=== PATIENT | male | born 1940 | race Caucasian/White ===

== ENCOUNTER 2025-01-18 22:10 | Inpatient (IN) | payer MEDICARE ==
[~2025-01-18] VITALS: Ht 170.2 cm; Wt 59.4 kg
[2025-01-18] MEDS ORDERED: ondansetron HCL 4 MG/2 ML VIAL IV ONE (23:00)
[2025-01-18] MEDS ORDERED: HYDROmorphone HCL 1 MG/ML SYR IV PRN (23:00)
[2025-01-18] MEDS ORDERED: LACTATED RINGER'S 1,000 ML IV ONE (23:00)
[2025-01-18] MEDS ORDERED: FAMOTIDINE 20 MG/ 2 ML VIAL IV ONE (23:00)
[2025-01-18 23:10] LABS: BASOPHILS 0.2 % (0.2-1.2); EOSINOPHILS 0.4 % (0.8-7.0); HEMATOCRIT 42.5 % (40.1-51.0); HEMOGLOBIN 14.1 g/dL (13.7-17.5); LYMPHOCYTES 3.3 % (21.8-53.1); MCH 32.3 PG (25.7-32.2); MCHC 33.2 g/dL (32.3-36.5); MCV 97.3 fL (79.0-92.2); MONOCYTES 4.8 % (5.3-12.2); NEUTROPHILS 89.9 % (34.0-67.9); PLATELET COUNT 238 K/uL (163-337); RBC 4.37 M/uL (4.63-6.08)
[2025-01-18 23:23] LABS: BILIRUBIN, URINE NEGATIVE (negative); BLOOD/HGB, URINE MODERATE (Negative); KETONE, URINE TRACE (Negative); LEUK ESTERASE, URINE MODERATE (negative); NITRITE, URINE POSITIVE (negative); PH, URINE 6.5 (5-7)
[2025-01-18 23:28] LABS: CRYSTALS, URINE NONE SEEN (0-1+); EPITHELIAL CELLS, URINE SQUAMOUS 1+ /lpf (0-1+); WHITE BLOOD CELLS, URINE >50 /HPF (0-5)
[2025-01-18 23:29] LABS: BACTERIA, URINE 2+ /hpf (negative); CASTS, URINE NONE SEEN \\lpf; COLLECTION TYPE, URINE CLEAN CATCH; REFLEX CULTURE, URINE Yes (No)
[2025-01-18 23:34] LABS: ALBUMIN 2.5 g/dL (3.4-5.0); ALBUMIN/GLOBULIN RATIO 0.5 (1.1-2.4); ANION GAP 16.9 (7-21); BILIRUBIN, TOTAL 1.4 mg/dL (0.2-1.0); CREATININE, SERUM 3.82 mg/dL (0.70-1.30); POTASSIUM 3.9 mmol/L (3.5-5.1); PROTEIN, TOTAL 7.5 g/dL (6.4-8.2)
[2025-01-18 23:39] LABS: CALCIUM 9.1 mg/dL (8.5-10.1)
[2025-01-18 23:40] LABS: BUN/CREATININE RATIO 41.09 (6.0-28.6)
[2025-01-19] MEDS ORDERED: LIDOCAINE 2% VISCOUS 6 ML SYR TOP ONE (00:15)
[2025-01-19] MEDS ORDERED: CEFTRIAXONE SODIUM 2 GM in SODIUM CHLORIDE 0.9% 100 ML IV ONE (00:15)
[2025-01-19 00:50] LABS: LACTIC ACID, BLOOD 1.7 mmol/L (0.4-2.0)
[2025-01-19] MEDS ORDERED: LACTATED RINGER'S 1,000 ML IV SCH (01:15)
[2025-01-19] MEDS ORDERED: LACTATED RINGER'S 1,000 ML IV ONE (01:15)
[2025-01-19] MEDS ORDERED: ondansetron HCL 4 MG/2 ML VIAL IV PRN ×2 (01:15→10:30)
[2025-01-19] MEDS ORDERED: HYDROmorphone HCL 1 MG/ML SYR IV PRN ×2 (01:15→10:30)
[2025-01-19 01:30] LABS: AMPHETAMINES, URINE NEGATIVE (NEGATIVE); BARBITURATES, URINE NEGATIVE (NEGATIVE); BENZODIAZEPINE, URINE NEGATIVE (NEGATIVE); BUPRENORPHINE, URINE NEGATIVE (NEGATIVE); CANNABINOID, URINE NEGATIVE (NEGATIVE); COCAINE, URINE NEGATIVE (NEGATIVE); ECSTASY, URINE NEGATIVE (NEGATIVE); FENTANYL, URINE NEGATIVE (NEGATIVE); METHADONE, URINE NEGATIVE (NEGATIVE); OPIATES, URINE NEGATIVE (NEGATIVE); OXYCODONE, URINE NEGATIVE (NEGATIVE); PHENCYCLIDINE, URINE NEGATIVE (NEGATIVE)
[2025-01-19 01:58] VITALS: BP 138/79
[2025-01-19] MEDS ORDERED: ERYTHROMYCIN 3.5 GM TUBE OU SCH (02:00)
--- NOTE | 2025-01-19 02:00 | NUR ---
PATIENT TRANSFERRED TO FLOOR BY ORACLE SCM CONSULTANT VIA STRETCHER. PATIENT TRANSFERRED FROM STRETCHER TO BED BY STAFF. PATIENT DAUGHTERS IN ROOM, BUT HEADING HOME FOR THE EVENING. DAUGHTERS PHONE NUMBERS IN PATIENT CHART. VS AND BED WEIGHT OBTAINED AND RECORDED. BED ALARM ON. WARM BLANKETS PROVIDED. THIS RN COMPLETED PATIENT ADMISSION USING MEDICAL RECORDS, DUE TO PATIENT SLEEPING/NONVERBAL AT THIS TIME. FLUIDS INFUSING PER ORDER.
--- NOTE | 2025-01-19 02:49 | NUR ---
ASSESSMENT AND VITAL SIGNS. SKIN ASSESSMENT DONE. IV ASSESSED, WNL. ALLYVEN ON COCCYX. pt DENIES ANY OTHER NEEDS AT THIS TIME. CALL LIGHT WITHIN REACH.
--- NOTE | 2025-01-19 04:19 | NUR ---
pt RESTING IN THE BED WITH EYES CLOSED. RR EVEN AND UNLABORED. CALL LIGHT WITHIN REACH.
[2025-01-19 06:02] LABS: BASOPHILS 0.2 % (0.2-1.2); EOSINOPHILS 1.3 % (0.8-7.0); HEMOGLOBIN 12.1 g/dL (13.7-17.5); LYMPHOCYTES 3.6 % (21.8-53.1); MCH 32.5 PG (25.7-32.2); MCHC 32.7 g/dL (32.3-36.5); MCV 99.5 fL (79.0-92.2); MONOCYTES 4.1 % (5.3-12.2); NEUTROPHILS 89.5 % (34.0-67.9); PLATELET COUNT 174 K/uL (163-337); RBC 3.72 M/uL (4.63-6.08)
[2025-01-19 06:08] VITALS: BP 139/71
[2025-01-19 06:18] LABS: ALBUMIN/GLOBULIN RATIO 0.5 (1.1-2.4); ANION GAP 11.2 (7-21); BILIRUBIN, TOTAL 0.7 mg/dL (0.2-1.0); BUN/CREATININE RATIO 42.41 (6.0-28.6); CALCIUM 8.9 mg/dL (8.5-10.1); CREATININE, SERUM 3.23 mg/dL (0.70-1.30); POTASSIUM 3.2 mmol/L (3.5-5.1)
--- NOTE | 2025-01-19 07:15 | NUR ---
REPORT RECEIVED FROM FIRST BEATER RN IMAN. PATIENT IS LYING IN BED WITH ELES CLOSED AND RESPIRATIONS ARE EVEN AND UNLABORED. PATENT DAUGHTER NICOLA IS IN THE ROOM AND SITTING IN THE RECLINER. NICOLA STATED NO NEEDS AT THIS TIME. CALL LIGHT AND PERSONAL BELONGINGS ARE WITHIN REACH.
[2025-01-19] MEDS ORDERED: DEXTROSE 5% 1,000 ML IV SCH (08:15)
[2025-01-19] MEDS ORDERED: POTASSIUM CHLORIDE 20 MEQ in DEXTROSE 5% 250 ML IV ONE (08:15)
--- NOTE | 2025-01-19 08:21 | NUR ---
MIGUEL AREA AND MASSEY CATHETER CARE COMPLETE. PATIENT TOLERATED WELL. MELISA, REVERBERATORY SKIMMER AND GISSELLE HEAD ASSISTED WITH CHANGING THE BRIEF. NEW ALEVYN PLACED ON THE COCCYX. NEW BRIEF IN PLACE. PATIENT REPOSITIONED. PATIENT DAUGHTER REMAINS AT THE BEDSIDE AND REPORTS HE LOOKS COMFORTABLE LYING IN BED AND NOT MOVING. PATIENT IS ON ROOM AIR. BREAKFAST TRAY REMOVED PER PATIENT DAUGHTER REQUEST. PATIENT STATED NO FURTHER NEEDS AT THIS TIME. CALL LIGHT AND PERSONAL BELONGINGS ARE WITHIN REACH.
--- NOTE | 2025-01-19 09:20 | NUR ---
Spoke with ps daughters, Emily and Yecenia. Emily lives here and Yecenia is from [place]. Both have been attempting to assist pt and state he suffered a rapid decline in the last 4 weeks at which time he stoppted eating and walking. Pt did not want treatment and has refused to come to the hospital. They brought him in last night when he was no longer able to tell them no. They are requesting Hospice. Emily has been mostly living in pts home and states she can no longer cont. to do so. We discussed him moving to her home with hospice or into and [facility]. Both daughters feel this would be best. They believe he has approximately 6 months of funds to cover placement. They have been speaking with [facility] and [facility] about placement. Emily also requestes [facility] as she used them for two other family members. Pt does not respond to voice or touch. I will contact the [facility] and Hospice.
[2025-01-19 09:23] VITALS: BP 125/56
--- NOTE | 2025-01-19 09:33 | NUR ---
PATIENT LAYING IN BED. BEDBATH AND SHAMPOO WERE DONE. PERICARE AND CATHETER CARE WAS DONE. VITAL SIGNS AND I&OS WERE DONE. PATIENTS SPO2 WAS 79% AND THE CHARGE NURSE WAS NOTIFIED. CALL LIGHT IN REACH AND NO FURTHER NEEDS AT THIS TIME.
--- NOTE | 2025-01-19 09:41 | NUR ---
PT NOT AVAILABLE FOR VISIT. PROVIDED PRAYER.
--- NOTE | 2025-01-19 09:50 | NUR ---
I called [facility] and spoke with Janie and she confirmed they have been discussing placement. She would like to set up a time to evaluate the pt tomorrow. I let her know he is not responding at this time. I gave her Emily's number as she would like to speak with her. I then called Geronimo at [facility] and she states they are not taking any Hospice pts at this time. I then called [facility] and they requested the chart immediately as they may have an opening tomorrow.
--- NOTE | 2025-01-19 09:55 | NUR ---
PATIENT IS LYING IN BED WITH EYES CLOSED AND RESPIRATIONS ARE EVEN AND UNLABORED. PATIENT IS ON ROOM AIR. PATIENT WITH TWO VISITORS IN THE ROOM. VISITORS STATED NO NEEDS AT THIS TIME. CALL LIGHT AND PERSONAL BELONGINGS ARE WITHIN REACH.
[2025-01-19 09:56] VITALS: BP 125/56
--- NOTE | 2025-01-19 10:13 | NUR ---
patient takes no home medications
--- NOTE | 2025-01-19 10:15 | NUR ---
IS IN THE ROOM AT THIS TIME AND HAD GOALS OF CARE CONVERSATION WITH THE TWO VISITORS IN THE ROOM. COMFORT CARE TO BE STARTED AT THIS TIME. SCHEDULED MEDICATIONS HELD DUE TO VERBAL ORDER AT BEDSIDE FROM MD TO NOT ADMINISTER. FULL ASSESSMENT COMPLETE AT THIS TIME. MASSEY CATHETER IN PLACE AND DRAINING CLOUDY, SEDIMENT, AND CONCENTRATED URINE. MIGUEL AND MASSEY CARE COMPLETED THIS MORNING. SEE NOTE BY THIS RN. PATIENT IS NOT ALERT AND ORIENTED BUT RESPONDS TO PAIN. ALEVYN REMAINS ON THE COCCYX. SKIN WITH SCATTERED SCABS NOTED. CARDIAC WITH NORMAL S1 AND S2 ON AUSCULTATION. RADIAL AND PEDAL PULSES ARE STRONG BILATERALLY. NO EDEMA NOTED. CAPILLARY REFILL IN THE UPPER AND LOWER EXTREMITIES IS LESS THAN 3 SECONDS. PATIENT IS ON A REGULAR DIET AND BOWEL TONES ARE ACTIVE IN ALL FOUR QUADRANTS. IV SITE FLUSHED WITH 10 ML NORMAL SALINE AND IS SALINE LOCKED. IV DRESSING IS CLEAN, DRY, AND INTACT. PATIENT IS ON ROOM AIR AND LUNG SOUNDS ARE CLEAR IN THE UPPER LOBE AND WITH CRACKLES IN THE BASES BILATERALLY. PATIENT FAMILY EXPRESSED THAT THE PATIENT LOOKS COMFORTABLE. FAMILY EDUCATED TO CALL IF THAT CHANGES. PATIENT EXPRESSED UNDERSTANDING. PATIENT STATED NO FURTHER NEEDS AT THIS TIME. CALL LIGHT AND PERSONAL BELONGINGS ARE WITHIN REACH.
[2025-01-19] MEDS ORDERED: LORazepam 2 MG/ML VIAL IV PRN (10:30)
[2025-01-19] MEDS ORDERED: ARTIFICIAL TEARS 15 ML BTL OU PRN (10:30)
[2025-01-19] MEDS ORDERED: ATROPINE SULFATE 1% OPTH DROPS SL PRN (10:30)
--- NOTE | 2025-01-19 10:32 | NUR ---
PATIENT IS RESTING IN BED WITH EYE CLOSED. PATIENTS CALL LIGHT IS WITHIN REACH AND NO FURTHER NEEDS AT THIS TIME. PATIENTS DAUGHTERS ARE IN ROOM.
[2025-01-19] MEDS ORDERED: SCOPOLAMINE 1 MG/3 DAYS PATCH 1 EACH TDSY TD SCH (10:37)
--- NOTE | 2025-01-19 11:01 | NUR ---
Received a call from [facility], face sheet is showing no insurance, but Medicare A listed in chart. Copied Medicare card, POA papers, and Advanced Directives faxed to Janie at [facility] and Ana at [facility].
--- NOTE | 2025-01-19 11:02 | NUR ---
SCOPOLAMINE PATCH PLACED BEHIND THE LEFT EAR AT THIS TIME. PATIENT WITH A VISITOR SITTING ON THE COUCH. PATIENT IS LYING IN BED WITH EYES CLOSED AND RESPIRATIONS ARE EVEN AND UNLABORED. PATIENT FAMILY REPORTED NO NEEDS AT THIS TIME. CALL LIGHT AND PERSONAL BELONGINGS ARE WITHIN REACH.
--- NOTE | 2025-01-19 11:42 | NUR ---
Patient resting in bed with eyes closed. PATIENT WAS REAJUSTED IN BED. CALL LIGHT IN REACH AND NO FURTHER NEEDS AT THIS TIME.
[2025-01-19] MEDS ORDERED: PHARMACY RENAL DOSE ADJUSTMENT 1 DOSE MISC PO SCH (12:00)
--- NOTE | 2025-01-19 12:15 | NUR ---
PATIENT IS LYING IN BED WITH EYES CLOSED AND RESPIRATIONS ARE EVEN AND UNLABORED. PATIENT WITH FAMILY IN THE ROOM AND REPORTS THAT HE STILL SEEMS COMFORTABLE. PATIENT FAMILY STATED NO FURTHER NEEDS AT THIS TIME. CALL LIGHT AND PERSONAL BELONGINGS ARE WITHIN REACH.
--- NOTE | 2025-01-19 12:36 | NUR ---
PT RESTING IN BED WITH EYES CLOSED AND RESPIRATIONS EVEN AND UNLABORED. NO SIGNS OF PAIN OR DISCOMFORT AT THIS TIME. DAUGHTER AND VISITOR IN ROOM. NO NEEDS IDENTIFIED AT THIS TIME. COMFORT TRAY IN ROOM.
--- NOTE | 2025-01-19 13:30 | NUR ---
Called and spoke with Ana from [facility], she states they will have an opening tomorrow. I then called Janie at [facility]. She will speak with the team and they need to see Danial in person to complete an eval.
--- NOTE | 2025-01-19 14:15 | NUR ---
Naomie gallegos [facility] here to speak with family.
--- NOTE | 2025-01-19 14:20 | NUR ---
PT RESTING IN BED WITH FAMILY IN ROOM. PT RESTING WITH EYES CLOSED AND RESPIRATIONS EVEN AND UNLABORED. JESSICA WHITE HERE TO EVALUATE PT. NO NEEDS IDENTIFIED AT THIS TIME. CALL LIGHT WITHIN REACH.
--- NOTE | 2025-01-19 15:01 | NUR ---
PT PAIN REASSESSED. PT RESTING WITH EYES CLOSED AND RESPIRATIONS EVEN AND UNLABORED. MO SIGNS OF DISCOMFORT NOTED, FAMILY CONFIRMS THAT PT HAS NO SIGNS OF DISCOMFORT AT THIS TIME. CALL LIGHT WITHIN REACH AND BED ALARM ON.
--- NOTE | 2025-01-19 15:16 | NUR ---
UR CLINICAL REVIEW: 2 MN FOR [facility]-PER SUPERINTENDENT DIVISION MEETS INPT FOR UTI WITH NEED FOR IV ABX MEDICARE PART A ONLY INPT 01/19/25 @ 1018 ORDER MATCHES REG NO AUTH REQUIRED PER MEDICARE GUIDELINES PER CARE CONFERENCE THIS AM COMFORT CARE WITH PLAN TO DC TO [facility].
--- NOTE | 2025-01-19 15:40 | NUR ---
Spoke with family, they states [facility] agrees to take pt tomorrow. Called Ana from [facility]. She states she has not heard from their hospice if he is accepting. I asked if they have ordered the bed and meds. She is unsure. She states she is there until 1630. She will let me know if she hears from their
--- NOTE | 2025-01-19 16:00 | NUR ---
ORAL CARE, FACE WASHED, BRIEF CHANGED AND MASSEY CARE GIVEN, AND PT TURNED/REPOSITIONED. BED ALARM ON AND DAUGHTER IN ROOM. CALL LIGHT WITHIN REACH.
--- NOTE | 2025-01-19 16:15 | NUR ---
GISSELLE OLSON IS IN THE ROOM AT THIS TIME. PATIENT IS LYING IN BED WITH EYES CLOSED AND RESPIRATIONS ARE EVEN AND UNLABORED. PATIENT DAUGHTER IS AT THE BEDSIDE. PATIENT FAMILY STATED NO FURTHER NEEDS AT THIS TIME. CALL LIGHT AND PERSONAL BELONGINGS ARE WITHIN REACH.
--- NOTE | 2025-01-19 16:24 | NUR ---
PATIENT LAYING IN BED. CATHETER CARE WAS DONE AND EMPTIED. GOWN WAS CHANGED. CALL LIGHT IN REACH AND NO FURTHER NEEDS A THIS TIME.
--- NOTE | 2025-01-19 17:11 | NUR ---
PATIENT IS LYING IN BED WITH EYES CLOSED AND RESPIRATIONS ARE EVEN AND UNLABORED. PATIENT DAUGHTER IS SPEAKING WITH OLIVER FROM CASE MANAGEMENT AT THIS TIME. CALL LIGHT AND PERSONAL BELONGINGS ARE WITHIN REACH.
--- NOTE | 2025-01-19 17:55 | NUR ---
PATIENT LAYING IN BED WITH EYES CLOSED. BRIEF WAS CHECK AND WAS DRY. CALL LIGHT IN REACH AND NO FURTHER NEEDS AT THIS TIME.
--- NOTE | 2025-01-19 18:01 | NUR ---
PATIENT REPOSITIONED AT THIS TIME WITH MELISA YATES RN. PATIENT TOLERATED WELL. PATIENT DAUGHTER REMAINS SITTING IN THE RECLINER AT BEDSIDE. PATIENT DAUGHTER STATED NO FURTHER NEEDS AT THIS TIME. CALL LIGHT AND PERSONAL BELONGINGS ARE WITHIN REACH.
--- NOTE | 2025-01-19 18:49 | NUR ---
THIS MEDICAL REIMBURSEMENT MANAGER AND MEDICAL REIMBURSEMENT MANAGER JAI AJUSTED PATIENT IN BED. PATIENT IS RESTING IN EYES CLOSED. FAMILY IS IN THE ROOM. CALL LIGHT IN REACH AND NO FURTHER NEEDS AT THIS TIME.
--- NOTE | 2025-01-19 19:20 | NUR ---
REPORT RECEIVED FROM DOLLY HERNANDEZ. pt RESTING IN THE BED. RR EVEN AND UNLABORED. FAMILY IN THE ROOM. pt DENIES ANY OTHER NEEDS AT THIS TIME. CALL LIGHT WITHIN REACH. BOARD UPDATED.
--- NOTE | 2025-01-19 20:55 | NUR ---
ASSESSMENT DONE. pt APPEARS TO IN PAIN. PRN MEDS ADMINISTERED. FAMILY IN RM. pt RESPOSITONED WITH PILLOWS UNDER BOTH HIPS. MASSEY CARE DONE. pt DENIES ANY OTHER NEEDS AT THIS TIME. CALL LIGHT WITHIN REACH.
[2025-01-19] MEDS ORDERED: CEFTRIAXONE SODIUM 1 GM in SODIUM CHLORIDE 0.9% 100 ML IV SCH (21:00)
--- NOTE | 2025-01-19 23:19 | NUR ---
pt RESPOSITIONED WITH PILLOW UNDER LEFT SIDE. ORAL CARE DONE. NO OTHER NEEDS AT THIS TIME. CALL LIGHT WITHIN REACH.
--- NOTE | 2025-01-20 00:44 | NUR ---
pt MOANING AND CALLING OUT. THIS RN WENT IN THE RM TO AND ASSESSED THE pt. PRN PAIN MEDS AND ANTIANXIETY MEDS ADMINISTERED. NO OTHER NEEDS AT THIS TIME. CALL LIGHT WITHIN REACH.
--- NOTE | 2025-01-20 02:58 | NUR ---
pt MOANING AND CALLING OUT. THIS RN AND PRETZEL TWISTER IN RM TO REPOSTION pt WITH PILLOWS UNDER BOTH HIPS. pt ASSESSED AND PRN PAIN AND ANTIANXIETY MEDS ADMINISTERED. pt DENIES ANY OTHER NEEDS AT THIS TIME. CALL LIGHT WITHIN REACH.
--- NOTE | 2025-01-20 05:00 | NUR ---
pt RESPOSITIONED WITH PILLOW UNDER RIGHT SIDE. ORAL CARE DONE. NO OTHER NEEDS AT THIS TIME.
--- NOTE | 2025-01-20 07:30 | NUR ---
Spoke with Emily, pts daughter. Pt is sleeping. She is distressed and not wanting to take dad to [facility] as they let her know last night they do not accept Medicaid. I appologized as I was not aware they had changed their policy. She also stated [facility] called her and let her know he was not accepted to hospice. I asked her to wait a short while and I will call [facility] and Hospice and clarify the above. 0800 I called Alma at hospice and she states the pt does not have a qualifing admission. We then reviewed the ER notes stating pt stopped eating 4 weeks and ago and only responds to painful stim. Veronica was not in yesterday. She will notify they hospice DrMaria Mand believes this pt does qualify for hospice. I then called [facility] and let them know of daughters concern if pt runs out of money he will need to be moved as they do not accept Medicaid. They will call me back. I spoke with daughter again and she would like pt to go to [facility] as she spoke with a worker there and they state they have a bed. I cautioned her, this is not always true. I will need to go through the admission person. I then called Fabio at [facility], they cannot accept a Hospice pt at this time. I called Tiff from [facility] and they have a double room available, she will check if they can move a pt to open a private bed. They only take Hospice pts into private rooms. She will call me back. I then called [facility], they cannot take a hospice pt. I returned to the room and spoke with Emily. More family members have arrived and state the numbers they were quoted were very high and they are concerned the pts money will run out in less than 3 month as it is close to $[phone] to admit. We then discussed taking pt home with family to assist and having hospice at home. Family all agree on this. Daughter, Yecenia, will take FMLA. They are happy with this as this was the pts wishes to pass away at home. I called Alma at [facility] and they can admit at 11:00. They will deliver a bed and table and have the comfort pack. They ask pt have a fentanyl patch place to cover pain. Pt has been on IV dilauded. I updated Dr. Heather and he agreed. Pt will go home by EMS, family are aware this may not be covered by Medicare. Family, , charge nurse notified pt will dc to home tomorrow per EMS and admit to Hospice.
--- NOTE | 2025-01-20 07:31 | NUR ---
RECIEVED SHIFT REPORT. PT RESTING IN BED, EYES CLOSED. FAMILY AT BEDSIDE. DENIES NEEDS. CALL LIGHT IN REACH. BRATHING EVEN AND UNLABORED.
--- NOTE | 2025-01-20 08:21 | NUR ---
PATIENT REPOSITIONED AT 0800 BY THIS IP PARALEGAL AND IP PARALEGALYosi WATSON. A PILLOW WAS PLACED UNDER LEFT HIP.
--- NOTE | 2025-01-20 08:40 | NUR ---
FAMILY NOTIFIED THIS RN THAT PT APPEARS TO BE ANXIOUS AND MORE FIDGITY. THIS RN IN ROOM TO ASSESS, PT MOANING AND MOVING LEGS. PRN MEDICATIONS GIVEN (PER EMAR). LUNG SOUNDS COURSE, BREATHING EVEN AND UNLABORED. R LEG IS 2+ EDEMA, L LEG NO EDEMA NOTED. FAMILY AT BEDSIDE. CALL LIGHT IN REACH
--- NOTE | 2025-01-20 09:37 | NUR ---
VISITED DURING SPIRITUAL CARE ROUNDS. PT SUPPORTED BY DAUGHTERS IN ROOM. PT APPEARED COMFORTABLE. DAUGHTERS EXPRESSED SITUATIONALLY CONSISTENT EMOTIONS. CRIME LAB ANALYST PROVIDED SUPPORTIVE PRESENCE, ANTICIPATORY GUIDANCE, HOSPITALITY, PRAYER, PROVIDED PRAYER QUILT. DAUGHTERS EXPRESSED GRATITUDE, LISSETTE IN AFTERLIFE SOURCE OF STRENGTH.
[2025-01-20] MEDS ORDERED: FENTANYL 25 MCG/HR 1 EA TDSY TD SCH (11:00)
--- NOTE | 2025-01-20 11:46 | NUR ---
REPORT RECEIVED FROM DAVID ALEXANDER. PATIENT IS RESTING SUPINE IN BED, EYES CLOSED, RR EVEN. 25MCG FENTANYL PATCH APPLIED TO PATIENT'S LEFT SHOULDER. PATIENT DOES NOT WAKE OR ROUSE WITH SPEAKING OR TOUCH. MASSEY CATH DRAINING FREELY TO BEDSIDE. CALL LIGHT IN REACH. NO FAMILY CURRENTLY PRESENT.
--- NOTE | 2025-01-20 12:54 | NUR ---
LAB CALLED TO NOTIFY THAT PATIENT HAS GRAM NEGATIVE RODS IN HIS ANAEROBIC BOTTLE. NOTIFIED.
--- NOTE | 2025-01-20 13:08 | NUR ---
PATIENT REPOSITIONED AND RIGHT HIP FLOATED BY THIS DIRECTOR OF PUBLIC SAFETY AND DAVID ALCANTAR. ORAL CARE COMPLETED AND CHAPSTICK APPLIED TO LIPS. CATH/MIGUEL CARE PERFORMED. A SMALL AMOUNT OF BLOOD WAS FOUND ON THE TIP OF THE PENIS, DAVID ALCANTAR NOTIFIED. MASSEY BAG WAS EMPTIED AND OUTPUT DOCUMENTED. PATIENT IS RESTING COMFORTABLY. DAVID ALCANTAR REENTERED ROOM.
--- NOTE | 2025-01-20 13:09 | NUR ---
PATIENT MAX ASSIST X2 TO PLACE PILLOW UNDER RIGHT HIP AND HEELS. PATIENT WAKES WITH MOVEMENT AND HAS OCCASIONAL GROANS AND CONSTANT GRIMACE. PRN PAIN MEDICATION AND ANXIOLYTIC ADMINISTERED, SEE MAR. GISSELLE MUNOZ PROVIDES CATH CARE AND ORAL CARE. BED IN LOWEST POSITION. CALL LIGHT IN REACH.
--- NOTE | 2025-01-20 15:36 | NUR ---
PATIENT RESTING IN BED WITH EYES CLOSED, RR 28 WITH SHORT INHALE FOLLOWED BY PROLONGED EXHALE. BED IS IN LOWEST POSITION, PILLOWS REMAIN IN PLACE FOR POSITIONING. HEELS FLOATED. CALL LIGHT IN REACH.
--- NOTE | 2025-01-20 17:20 | NUR ---
PATIENT RESTING IN BED WITH EYES CLOSED, NO NOTED RESPS OR HEART RATE. MD NOTIFIED AND COMING DOWN.
--- NOTE | 2025-01-20 17:41 | NUR ---
MD IN TO ASSESS PATIENT AND DECLARE TIME OF .
--- NOTE | 2025-01-20 17:48 | NUR ---
FAMILY ARRIVES AND IS STOPPED IN THE HALLWAY BY THIS RN AND OCEAN FREIGHT MANAGER. FAMILY INFORMED OF PATIENT'S . FAMILY IN ROOM WITH PATIENT, OCEAN FREIGHT MANAGER, AND MD.
--- NOTE | 2025-01-20 18:43 | NUR ---
Chaplain Suarez was called at 1723 regarding a patient . Arrived at 1736. Doctor examined patient and called time of at 1741. Family arrived a short time later and was informed of patient . While sad, family was comforted that patient was no longer suffering. Operations Manager Station offered condolences to family as well as more family arrived later. Calling [facility] mortuary was held off due to family en route and continuing to arrive for a time. Mortuary was called at 1832. There were no family belongings to release.
--- NOTE | 2025-01-20 19:23 | NUR ---
home arrived at 185. Patient departed at 19:15.
[2025-01-23] MEDS ORDERED: fentaNYL 1 EACH TDSY TD SCH (09:00)
== END 2025-01-20 19:30 | DRG 699 ==
LOC: ED 22:10 → MS 22:11
PROVIDERS: Internal Medicine; ADMIT Student in an Organized Health Care Education/Training Program; ATTEND Student in an Organized Health Care Education/Training Program
PROC: 0T9B70Z Drainage of Bladder with Drainage Device, Via Natural or Artificial Opening (ICD-10-PCS; principal; 2025-01-19)
DX: N32.0 Bladder-neck obstruction (principal); G40.89 Other seizures; N17.9 Acute kidney failure, unspecified; R64 Cachexia; J90 Pleural effusion, not elsewhere classified; R18.8 Other ascites; N13.6 Pyonephrosis; Z66 Do not resuscitate; Z51.5 Encounter for palliative care; Z74.01 Bed confinement status; Z68.20 Body mass index [BMI] 20.0-20.9, adult; E86.0 Dehydration; F41.9 Anxiety disorder, unspecified; H10.33 Unspecified acute conjunctivitis, bilateral; K46.9 Unspecified abdominal hernia without obstruction or gangrene; L89.151 Pressure ulcer of sacral region, stage 1; F10.10 Alcohol abuse, uncomplicated; R62.7 Adult failure to thrive; N42.89 Other specified disorders of prostate; Z85.9 Personal history of malignant neoplasm, unspecified
CPT/HCPCS: 36415; 51702; 71045; 74176; 80048; 80053; 80307; 81001; 82550; 83605; 83690; 84153; 85025; 87040; 87077; 87088; 87186; 99285-25; A4311; G0378; G0480; J0696; J1171; J2060; J2405; J3480; J7060; J7070; J7121